=== PATIENT | female | born 1960 | race Two or more races ===

== ENCOUNTER 2017-06-10 10:46 | Emergency (ER) | payer SELFPAY ==
[~2017-06-10] VITALS: Ht 170.2 cm; Wt 79.4 kg
[2017-06-10] MEDS ORDERED: SIMVASTATIN20 MG ORAL (10:56)
[2017-06-10] MEDS ORDERED: NORCO 5-325 TA1 EACH ORAL (11:41)
[2017-06-10] MEDS ORDERED: IBUPROFEN600 MG ORAL (11:41)
--- NOTE | 2017-06-10 11:51 | Diagnostic Imaging Report ---
Indication: Foot pain post trauma Technique: XRAY FOOT MIN 3V LEFT Comparison: None. Findings: There is a fracture of the base of the fifth metatarsal. This is nondisplaced. The remainder the bones are intact. The joints are normal. Impression: Fracture of the base of the fifth metatarsal, nondisplaced.
[2017-06-10 12:10] VITALS: BP 144/75
--- NOTE | 2017-06-10 16:07 | Emergency Room Report ---
History of Present Illness General Chief Complaint: Lower Extremity Injury Source: Patient Present Illness HPI Patient is a 57 [id number] female presented after having increased left foot pain. Patient had recent injury to her left foot by inversion. Injury occurred just earlier in the day. The patient increased pain with ambulation she still she felt a crack. She denies other locations of injury. Allergies: Coded Allergies: OXYCODONE (Verified Allergy, Unknown, 06/10/17) Uncoded Allergies: NUTS (Adverse Reaction, Severe, 06/10/17) Patient History Past Medical History: see triage record Reviewed Nursing Documentation: PMH: Agreed, PSxH: Agreed Nursing Documentation-PMH Past Medical History: No History, Except For Review of Systems All Other Systems: negative except mentioned in HPI Physical Exam Vital Signs Date Time Temp Pulse Resp B/P (MAP) Pulse Ox O2 Delivery O2 Flow Rate FiO2 06/10/17 10:53 98.4 97 16 161/83 97 Room Air General Appearance: well appearing, no apparent distress, alert, GCS 15 Head: normocephalic, atraumatic ENT: hearing grossly normal, normal voice Neck: full range of motion, supple Respiratory: no respiratory distress, speaking full sentences Musculoskeletal: no calf tenderness, swelling - left foot near lateral aspect Neurologic: normal gait Psychiatric: mood/affect normal Skin: no rash Medical Decision Making Diagnostic Impression: Primary Impression: Fracture of 5th metatarsal ER Course Patient presented for foot pain. Differential diagnoses include was was not limited to cellulitis, foreign body, fracture, plantar fasciitis, vascular insufficiency, sprain. X-ray imaging of the left foot 3 views interpreted by me showed a fracture of the fifth metatarsal base. The patient was placed in posterior splint given crutches.Patient was advised to follow up for casting with orthopedics in the next few days. Last Vital Signs Date Time Temp Pulse Resp B/P (MAP) Pulse Ox O2 Delivery O2 Flow Rate FiO2 06/10/17 12:10 98.4 66 15 144/75 98 Room Air Status: improved Disposition: HOME, SELF-CARE Condition: Stable Scripts Hydrocodone Bit/Acetaminophen 5-325* (NORCO 5-325*) 1 Each Tablet 1 TAB ORAL Q6H Y for For Pain, #20 TAB 0 Refills Prov: Dalton Santana 06/10/17 Ibuprofen* (MOTRIN*) 600 Mg Tablet 600 MG ORAL Q8H Y for For Pain, #30 TAB 0 Refills Prov: Dalton Santana 06/10/17 Referrals: LONNY DUPREE call office for appointment NOT CHOSEN IPA/MD,REFERRING (PCP) Patient Instructions: Metatarsal Fracture Dalton Santana Jun 10, 2017 16:07
== END 2017-06-10 12:10 | disposition home or self-care (01) ==
LOC: EMR 11:00
DX: S92.355A Nondisplaced fracture of fifth metatarsal bone, left foot, initial encounter for closed fracture (principal); X50.1XXA Overexertion from prolonged static or awkward postures, initial encounter; Y92.89 Other specified places as the place of occurrence of the external cause; Z91.018 Allergy to other foods; Z88.6 Allergy status to analgesic agent
CPT/HCPCS: 29515; 99284